=== PATIENT | male | born 1975 | race Caucasian/White ===

== ENCOUNTER 2018-12-09 14:46 | Emergency (ER) | payer MEDICAID ==
[~2018-12-09] VITALS: Ht 177.8 cm; Wt 86.7 kg
[2018-12-09 14:55] VITALS: BP 115/73
[2018-12-09] MEDS ORDERED: ACETAMINOPHEN 500 MG TABLET PO ONE (15:00)
[2018-12-09] MEDS ORDERED: ACETAMINOPHEN 500 MG TABLET ONE (15:05)
[2018-12-09 16:09] LABS: RAPID INFLUENZA A POSITIVE (Negative); RAPID INFLUENZA B Negative (Negative)
== END 2018-12-09 16:34 | disposition home or self-care (01) ==
LOC: ED 16:08
DX: J10.1 Influenza due to other identified influenza virus with other respiratory manifestations (principal)
CPT/HCPCS: 87081; 87400; 87880; 99283